=== PATIENT | male | born 1965 | race Caucasian/White ===

== ENCOUNTER 2021-01-05 12:54 | Emergency (ER) | payer OTHER ==
[~2021-01-05 12:54] MED LIST: ELIQUIS 5 MG TAB5 MG PO; RYTHMOL SR 225225 MG PO
[2021-01-05 16:29] LABS: HEMOGLOBIN 16.2 gm/dl (14.0-17.5); RED BLOOD COUNT 5.39 M/UL (4.20-5.50); WHITE BLOOD COUNT 15.5 K/UL (4.5-11.0)
[2021-01-05 17:01] LABS: BUN/CREATININE RATIO 11 (0-10)
== END 2021-01-05 18:27 ==
LOC: ER1 12:54
PROVIDERS: Emergency Medicine
DX: I63.9 Cerebral infarction, unspecified (principal); I48.91 Unspecified atrial fibrillation; R29.702 NIHSS score 2; F17.210 Nicotine dependence, cigarettes, uncomplicated; Z88.0 Allergy status to penicillin; Z90.89 Acquired absence of other organs; Z88.8 Allergy status to other drugs, medicaments and biological substances
CPT/HCPCS: 70450; 71045; 80053; 82550; 82553; 83874; 84484; 85025; 85610; 85730; 93005; 99285